=== PATIENT | female | born 1960 | race Caucasian/White ===

== ENCOUNTER → 2020-06-05 08:51 | Outpatient (BNVA) | payer OTHER, SELFPAY | PROVIDERS: PCP Internal Medicine; Visit Provider Urology | DX: Z76.89 Persons encountering health services in other specified circumstances (principal) ==

== ENCOUNTER 2020-07-01 13:23 | Outpatient (REF) | payer OTHER, SELFPAY ==
--- NOTE | ~2020-07-01 | US_ITS ---
EXAMINATION: US RETROPERITONEAL LIMITED (RENAL ONLY) CLINICAL INFORMATION: Calculus of kidney. COMPARISON: Ultrasound renals only 08/03/2019. Ultrasound renal 04/25/2015. X-ray KUB 05/26/2017 and 05/12/2017. TECHNIQUE: Real-time imaging of the kidneys. FINDINGS: RIGHT KIDNEY: 12.1 x 5.4 x 5.2 cm (SAG x AP x TRV). The kidney is normal in size, contour, and echogenicity. Renal cortical thickness is normal. No calculi or focal parenchymal lesions. No hydronephrosis. LEFT KIDNEY: 10.5 x 4.9 x 5.2 cm (SAG x AP x TRV). The kidney is normal in size, contour, and echogenicity. Renal cortical thickness is normal. There are 2 anechoic cysts in midpole measuring 0.7 x 0.6 x 0.5 cm and 1.1 x 1.0 x 1.3 cm. There are 3 small echogenic stones. 1. A midpole echogenic stone measures 0.2 x 0.2 x 0.2 cm. 2. A lower pole echogenic stone measures 0.3 x 0.2 x 0.3 cm. 3. A lower pole echogenic stone measures 0.2 x 0.2 x 0.2 cm. There is no caliectasis or hydronephrosis. US/US renal BI IMPRESSION: 1. Nonobstructive echogenic stone in midpole and lower pole and at least two mid pole cysts left kidney. 2. The right kidney is unremarkable.
== END 2020-07-01 13:24 | disposition home or self-care (01) ==
LOC: HO.US 13:23
PROVIDERS: PCP Internal Medicine; Visit Provider Urology
DX: N20.0 Calculus of kidney (principal)
CPT/HCPCS: 76775